=== PATIENT | female | born 1980 | race African-American/Black ===

== ENCOUNTER 2016-10-12 13:42 | Inpatient (IN) ==
[2016-10-12 14:31] LABS: Basophils % 0.4 % (0.0-0.8); Eosinophils # 0.1 10*3/uL (0.0-0.87); Eosinophils % 1.6 % (0.00-10.9); Hematocrit 34.7 VOL% (35.7-47.0); Hemoglobin 11.8 GM/DL (12.0-16.0); Immature Granulocytes % 0.9 %; Immature Granulocytes Absolute 0.05 #; Lymphocytes # 1.2 10*3/uL (1.4-4.0); Lymphocytes % 21.9 % (21.3-54.2); Mean Corpuscular Hemoglobin 29 PG (27-34); Mean Corpuscular Volume 84.8 FL (87-102); Monocytes # 0.5 10*3/uL (0.11-0.8); Monocytes % 8.8 % (1.7-12.7); Neutrophils # 3.8 10*3/uL (1.4-7.4); Neutrophils % 66.4 % (38.7-73.9); Platelet Count 257 T/CUMM (130-400); Red Blood Count 4.09 MC/CUMM (3.8-5.5); Red Cell Distribution Width 13.9 % (9.3-17.3); White Blood Count 5.7 T/CUMM (4-12)
[2016-10-12 14:47] LABS: INR 0.9; PT Patient Result 9.9 SECS; Partial Thromboplastin Time 26.2 SECS (0-40)
[2016-10-12 15:02] LABS: Alanine Aminotransferase < 9 U/L (13-56); Albumin 2.5 G/DL (3.4-5.0); Alkaline Phosphatase 105 U/L (45-117); Aspartate Amino Transferase 15 U/L (0-37); Blood Urea Nitrogen 6 MG/DL (7-18); Glucose 71 MG/DL (74-106); Osmolality,Calculated 268.8 MOS/KG (273-304); Potassium 3.5 MMOL/L (3.5-5.1); Sodium 137 MMOL/L (136-145); Total Protein 6.5 G/DL (6.4-8.3); Uric Acid 4.2 MG/DL (2.6-6.0)
--- NOTE | 2016-10-12 15:24 | Ultrasound Report ---
Exam: US OB >= 14 weeks fetus Date: 10/12/2016 1:59 PM Comparison: 04/01/2016 Indication: PIH Technique:[Multiple transabdominal real-time scans were obtained of the pelvis. Color-flow scans obtained. Ultrasound images were captured and stored.] Findings: There is a single intrauterine fetus in cephalic presentation with a heart rate of 149 BPM. The fundal placenta is not low-lying in position. Maternal ovaries are not identified. Limited survey scans were obtained with suboptimal evaluation of the spine, cord insertion, extremities, and face. 3 vessel cord documented. No definite pathology is identified heart, stomach, kidneys, or bladder. Measurements obtained are as follows: BPD 35 weeks 4 days HC 35 weeks 5 days AC 35 weeks 0 days FL 35 weeks 1 day EFW 5 lbs. 12 oz. +/- 14 ounces GP 7.3% AXEL 27.8 mm Impression: Single intrauterine fetus in the cephalic presentation at 35 weeks 3 days +/- 3 days with EDC 11/13/2016. EDC of prior exam 10/27/2016. This finding could be associated with possible early asymmetric intrauterine growth retardation. Oligohydramnios with AXEL of 27.8 mm. Follow-up scans may be helpful for further evaluation. PROCEDURE INTERPRETED AT [facility] DEPARTMENT OF RADIOLOGY Final Report Signed by: Dr. Solange Montoya
[2016-10-12] MEDS ORDERED: BUTORPHANOL 2 MG/ML VIAL IV PRN (16:03)
[2016-10-12] MEDS ORDERED: MEPERIDINE 50 MG/1 ML VIAL IV PRN (16:03)
[2016-10-12 16:26] LABS: Basophils % 0.1 % (0.0-0.8); Eosinophils # 0.1 10*3/uL (0.0-0.87); Eosinophils % 1.4 % (0.00-10.9); Hematocrit 35.2 VOL% (35.7-47.0); Hemoglobin 12.1 GM/DL (12.0-16.0); Immature Granulocytes % 0.7 %; Immature Granulocytes Absolute 0.05 #; Lymphocytes # 1.5 10*3/uL (1.4-4.0); Lymphocytes % 21.5 % (21.3-54.2); Mean Corpuscular HGB Conc 34.4 GM/DL (32-36); Mean Corpuscular Hemoglobin 29 PG (27-34); Mean Corpuscular Volume 85.2 FL (87-102); Mean Platelet Volume 9.7 FL (9.6-12.0); Monocytes # 0.6 10*3/uL (0.11-0.8); Monocytes % 7.7 % (1.7-12.7); Neutrophils # 4.9 10*3/uL (1.4-7.4); Neutrophils % 68.6 % (38.7-73.9); Platelet Count 238 T/CUMM (130-400); Red Blood Count 4.13 MC/CUMM (3.8-5.5); Red Cell Distribution Width 13.8 % (9.3-17.3); White Blood Count 7.2 T/CUMM (4-12)
[2016-10-12] MEDS ORDERED: OXYTOCIN/LR 20 UNIT/1,000 ML BAG IV SCH (16:30)
[2016-10-12] MEDS ORDERED: CITRIC ACID/SODIUM CITRATE 30 ML UDCUP PO ONE (19:17)
[2016-10-12] MEDS ORDERED: ePHEDrine 50 MG/ML AMP IV PRN (19:17)
[2016-10-12] MEDS ORDERED: FAMOTIDINE 20 MG/2 ML VIAL IV ONE (19:17)
[2016-10-12] MEDS: LACTATED RINGERS 1,000 ML IV SCH (19:33)
[2016-10-12] MEDS: PENICILLIN G POTASSIUM INJ 6,000,000 UNIT in SODIUM CHLORIDE 0.9% 100 ML IV SCH (19:34)
[2016-10-12] MEDS: fentaNYL 2 MCG/ROPIV 0.2% EPID 150 ML EPIDURAL SCH (20:22)
[2016-10-12] MEDS: ONDANSETRON 4 MG/2 ML VIAL IV PRN (21:11)
[2016-10-12 21:17] LABS: Apearance,Urine CLOUDY (Clear); Bilirubin,Urine Negative (Negative); Blood, Urine Small mg/dL (Negative); Glucose,Urine (UA) Negative (Negative); Ketones,Urine 20 mg/dL (Negative); Mucus,Urine Occasional /LPF (Occasional); Nitrite,Urine Negative (Negative); Protein,Urine Negative; RBC,Urine 1 /HPF (0-4); Squamous Epithelial Cell,Urine Occasional /HPF (0-10); Urine Color Yellow (Yellow); Urine Urobilinogen < 2.0 EU/DL (0.2-1.0); WBC,Urine 1 /HPF (0-6)
[2016-10-13] MEDS ORDERED: DINOPROSTONE 10 MG VAG.INSERT VAG ONE (01:00)
[2016-10-13] MEDS: PENICILLIN G POTASSIUM INJ 6,000,000 UNIT in SODIUM CHLORIDE 0.9% 100 ML IV SCH ×2 (01:10→08:25)
[2016-10-13] MEDS: LACTATED RINGERS 1,000 ML IV SCH ×2 (03:37→12:45)
[2016-10-13 06:30] LABS: Rapid Plasma Reagin Confirm NONREACTIVE (Nonreactive)
[2016-10-13] MEDS: fentaNYL 2 MCG/ROPIV 0.2% EPID 150 ML EPIDURAL SCH (09:28)
[2016-10-13] MEDS: ONDANSETRON 4 MG/2 ML VIAL IV PRN (10:15)
--- NOTE | 2016-10-13 11:48 | OB/GYN History & Physical ---
History of Present Illness Chief complaint: IOL secondary to oligohydramnios History of present illness: Ms. Moss is a 36 year old female at 38 0/7 wks who was admitted yesterday afternoon. I saw the patient in the office yesterday morning. That was her first visit since the end of July. I asked that she come to L&D for an NST and u/s. She is morbidly obese with a h/o C HTN. Also noted that she had significant LLE. U/s showed beginning of likely IUGR and oligohydramnios with an AXEL of 2.5 cm. Decision to proceed with IOL. Pt did not respond to a few hours of pitocin. Decision to stop and place Cervidil. Cervidil placed at ~ 0030. Removed at 0845 and pitocin started. Comfortable with epidural. 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 Extreme morbid obesity and a h/o C HTN. H/o x 5. R/B/A to IOL reviewed with the patient. Verbalized understanding and willing to proceed. Home Medications Medication Instructions Recorded Confirmed Type Vit No.124/Iron/Folic 1 each PO DAILY 08/11/16 10/12/16 History [ Vitamin Tablet] Allergies Allergy/AdvReac Type Severity Reaction Status Date / Time No Known Allergies Allergy Verified 10/12/16 13:58 Medical,Surgical,& Family Hx - Medical History Reproductive: History of: Sexually Transmitted Disorders (+ TX FOR HERPES AND SYPHYLLIS) - Surgical History Reproductive Surgeries: Patient denies;: Gynecologic Surgery - Family History Family History: Reports;: Family Hypertension (MOTHER) Denies;: Family Anesthesia Reaction, Family Cancer, Family Diabetes, Family Heart Disease, Family Hematology, Family Psychiatric Problems, Family Stroke, Additional Family History - Social History Smoking Status: Never smoker Frequency of Alcohol Use: None Type of Drug Use: 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 - Constitutional Vitals: Vital Signs Temp Pulse Resp BP Pulse Ox 10/13/16 08:00 97.4 F L 84 20 148/82 97 10/13/16 04:00 96.9 F L 83 18 124/75 99 10/13/16 00:00 97.1 F L 75 18 133/72 99 10/12/16 19:26 96.9 F L 82 20 153/71 99 10/12/16 16:58 87 20 152/67 10/12/16 16:00 97.3 F L 85 24 128/68 98 General appearance: no acute distress, morbidly obese - Head Head exam: Present: normal inspection, normocephalic - Eye Eye exam: Present: EOMI Pupils: Present: ARMANDO - Respiratory Respiratory exam: Present: clear to auscultation bilaterally - Cardiovascular Cardiovascular exam: Present: regular rate and rhythm - GI/Abdominal GI/Abdominal exam: Present: soft, other (Gravid, FHTs reassuring. Contractions q 2-3 minutes) - Extremities Exam Extremities exam: Present: edema Assessment and Plan (1) 38 weeks gestation of Status: Acute Current Visit: Yes (2) Oligohydramnios in robles in third trimester Status: Acute Assessment and plan: Continue IOL Anticipate delivery Current Visit: Yes (3) Insufficient care in third trimester Status: Acute Current Visit: Yes Results - Labs CBC & BMP: 10/12/16 16:19 10/12/16 14:12
--- NOTE | 2016-10-13 14:14 | OB/GYN Progress Note ---
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 Contractions q 1-2 mins. AROM, clear 6/60/-1) Results - Labs CBC & BMP: 10/12/16 16:19 10/12/16 14:12
[2016-10-13] MEDS ORDERED: CITRIC ACID/SODIUM CITRATE 30 ML UDCUP ONE (14:53)
[2016-10-13] MEDS ORDERED: miSOPROStol 200 MCG TABLET ONE (14:57)
[2016-10-13] MEDS ORDERED: LIDOCAINE 1% 50 ML VIAL ONE (14:58)
[2016-10-13] MEDS ORDERED: METHYLERGONOVINE 0.2 MG/1 ML AMP ONE (14:58)
[2016-10-13] MEDS ORDERED: OXYTOCIN 10 UNIT/ML VIAL ONE (15:08)
--- NOTE | 2016-10-13 15:29 | Event Note ---
DELIVERY NOTE of female infant in cephalic presentation with loose nuchal cord. Complete and pushed over 2 contractions involuntarily 6 lbs 10 oz. APGARS 8/9. Spontaneous intact placenta. Bilateral periurethral lacerations, hemostatic. Midline second degree repaired with 3.0 vicryl EBL 300cc NICU present for delivery. Mom and baby doing well.
[2016-10-13] MEDS ORDERED: OXYTOCIN/LR 20 UNIT/1,000 ML BAG IV ONE (15:50)
[2016-10-13] MEDS ORDERED: BENZOCAINE 20%/MENTHOL 0.5% SPRAY 56 GM CAN TOP PRN (16:46)
[2016-10-13] MEDS ORDERED: LANOLIN 50% CREAM 0.3 OZ TUBE TOP PRN (16:46)
[2016-10-13] MEDS ORDERED: DIPH/TET/ACEL PERT BOOSTER VACCINE 0.5 ML VIAL IM ONE (16:46)
[2016-10-13] MEDS ORDERED: oxyCODONE/ACETAMINOPHEN 5-325 MG TABLET PO PRN (16:46)
[2016-10-13] MEDS ORDERED: RHO(D) IMMUNE GLOBULIN 300 MCG SYRINGE IM ONE (16:46)
[2016-10-13] MEDS ORDERED: BISACODYL 10 MG SUPP RECTAL PRN (16:46)
[2016-10-13] MEDS ORDERED: MEASLES/MUMPS/RUBELLA VACCINE 0.5 ML VIAL SUBCUT ONE (16:46)
[2016-10-13] MEDS ORDERED: WITCH HAZEL PADS 100/JAR TOP PRN (16:46)
[2016-10-13] MEDS ORDERED: HYDROCORTISONE 2.5% RECTAL CREAM 30 GM TUBE TOP PRN (16:46)
[2016-10-13] MEDS: IBUPROFEN 800 MG TABLET PO SCH (17:27)
[2016-10-13] MEDS ORDERED: PENICILLIN G POTASSIUM INJ 6,000,000 UNIT in SODIUM CHLORIDE 0.9% 100 ML IV SCH (17:30)
[2016-10-13] MEDS: oxyCODONE/ACETAMINOPHEN 5-325 MG TABLET PO PRN (17:33)
[2016-10-13] MEDS: DOCUSATE SODIUM 100 MG CAPSULE PO SCH (20:24)
[2016-10-14] MEDS: oxyCODONE/ACETAMINOPHEN 5-325 MG TABLET PO PRN ×3 (03:20→23:18)
[2016-10-14] MEDS: IBUPROFEN 800 MG TABLET PO SCH ×3 (03:20→20:28)
[2016-10-14 05:08] LABS: Basophils % 0.1 % (0.0-0.8); Eosinophils # 0.1 10*3/uL (0.0-0.87); Eosinophils % 0.8 % (0.00-10.9); Hematocrit 31.8 VOL% (35.7-47.0); Immature Granulocytes % 0.6 %; Immature Granulocytes Absolute 0.05 #; Lymphocytes # 1.5 10*3/uL (1.4-4.0); Lymphocytes % 18.2 % (21.3-54.2); Mean Corpuscular HGB Conc 34.6 GM/DL (32-36); Mean Corpuscular Hemoglobin 30 PG (27-34); Mean Corpuscular Volume 85.9 FL (87-102); Mean Platelet Volume 10.1 FL (9.6-12.0); Monocytes % 12.2 % (1.7-12.7); Neutrophils # 5.7 10*3/uL (1.4-7.4); Neutrophils % 68.1 % (38.7-73.9); Platelet Count 224 T/CUMM (130-400); Red Cell Distribution Width 13.7 % (9.3-17.3); White Blood Count 8.4 T/CUMM (4-12)
[2016-10-14] MEDS: DOCUSATE SODIUM 100 MG CAPSULE PO SCH ×3 (08:40→20:28)
--- NOTE | 2016-10-14 08:41 | OB/GYN Progress Note ---
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 - Constitutional Vitals: Vital Signs Temp Pulse Resp BP Pulse Ox 10/14/16 05:00 20 10/14/16 04:00 97.1 F L 87 20 131/82 97 10/14/16 03:00 20 10/14/16 02:00 20 10/13/16 23:57 98.5 F 85 20 105/50 98 10/13/16 23:56 20 10/13/16 20:00 98.0 F 90 20 145/83 97 10/13/16 18:59 88 20 132/87 99 10/13/16 18:23 20 10/13/16 18:00 89 20 136/87 99 10/13/16 17:43 20 10/13/16 17:30 82 20 153/85 99 10/13/16 17:00 97.5 F L 82 20 149/87 99 10/13/16 16:00 97.9 F 10/13/16 12:00 97.8 F 76 18 135/78 General appearance: no acute distress, morbidly obese - Head Head exam: Present: normal inspection, normocephalic - Eye Eye exam: Present: EOMI - GI/Abdominal GI/Abdominal exam: Present: soft. Absent: tenderness Results - Labs CBC & BMP: 10/14/16 03:59 10/12/16 14:12
[2016-10-15] MEDS: IBUPROFEN 800 MG TABLET PO SCH (05:07)
[2016-10-15] MEDS: oxyCODONE/ACETAMINOPHEN 5-325 MG TABLET PO PRN (05:08)
[2016-10-15 08:15] VITALS: BP 148/77
--- NOTE | 2016-10-15 09:27 | Discharge Summary ---
Hospital Course - Hospital Course Hospital Course: Routine course. Pt feels sore this morning. Ready to go home. Will have her f/u in 1 wk for BP check. H/o C HTN. Has not required medication Diagnosis - Discharge Diagnosis (1) 38 weeks gestation of Status: Acute (2) Oligohydramnios in robles in third trimester Status: Acute (3) Insufficient care in third trimester Status: Acute (4) Encounter for full-term uncomplicated delivery Status: Acute Specialty Discharge - Follow Up or Referrals Follow up with: Luz Carrero MD [Physician] - Discharge Plan - Discharge Data Disposition: Disch To Home/Self Care Condition at Discharge: Stable Discharge Diet: heart healthy, low salt diet, other (low fat) Activity: other (routine ) Hygiene: may shower Weight Bearing at Discharge: full weight bearing Driving: no restrictions Contact your physician if you experience:: fever over 101, Difficulty voiding, Redness or swelling - Discharge Medications New Ibuprofen Tab [Motrin Tab] 800 mg PO Q8H #30 tablet No Action Vit No.124/Iron/Folic [ Vitamin Tablet] 1 each PO DAILY - Follow Up or Referral Follow Up: Luz Carrero MD [Physician] - - Forms/Instructions Instructions: Depression (GEN), Perineal Care (DC), Vaginal Delivery (DC), Bleeding (DC) Exam - Constitutional Vitals: Period Temp Pulse Resp BP Sys/[place] Pulse Ox Last 24 Hr 97.1 F-98.4 F 75-91 18-20 109-160/72-90 97-99 General appearance: no acute distress, morbidly obese - Head Head exam: Present: normal inspection - Eye Eye exam: Present: EOMI - GI/Abdominal GI/Abdominal exam: Present: soft. Absent: tenderness DS: Provider Date of admission: 10/12/16 15:00 Primary care physician: Giselle Multani Attending physician on admission: Luz Carrero MD Consults: 10/13/16 16:46 Consult to Finished Goods Stock Clerk [CONS] Routine Consult Finished Goods Stock Clerk: Breast Feeding Discharging clinician: Luz Carrero MD
--- NOTE | 2016-10-15 12:23 | Anesthesia Post-Op ---
Anesthesia Post OP - Post Ansesthetic Evaluation Patient seen in post op: Yes Resp: within normal limits CV: within normal limits Mental: within normal limits Temp: within normal limits [id number]: within normal limits Nausea and Vomiting: within normal limits Pain: within normal limits
== END 2016-10-15 13:30 | disposition home or self-care (01) | DRG 560 ==
LOC: N.LDOUT 13:42 → N.LD 13:48 → N.OB 10-13 16:43
PROVIDERS: ADMIT Obstetrics & Gynecology; ATTEND Obstetrics & Gynecology